=== PATIENT | male | born 1995 | race Caucasian/White ===

== ENCOUNTER 2018-08-10 17:00 | Emergency (ER) | payer OTHER, SELFPAY ==
[2018-08-10 17:07] VITALS: BP 145/81; PULSE 130; RESP 16; TEMP 37.1; O2SAT 97
--- NOTE | 2018-08-10 17:23 | W.ED.GENAD ---
Discharge Plan Disposition Patient Disposition: HOME Condition: Improving Discharge Details Chief Complaint: Laceration Clinical Impression: Laceration of left wrist Reason For Visit: left wrist LAC Primary Care Provider: Justin Matamoros ED Provider: Andrew Bolden Discharge Instructions Instructions: Laceration (ED) Additional Instructions: Return or see regular doctor for removal of sutures in 7-8 days time. Return sooner if you develop a fever, discharge from the wound, or any other acute concerns. May wash with soap and water, pat dry daily with dressing changes. Medical Decision Making 22-year-old male presents after lacerating his left wrist with the edge of his ski when he had a forward somersault fall without other injury. Hemostasis was achieved with pressure at the scene. His tetanus status is up-to-date. He has no motor or sensory dysfunction. He was initially quite anxious and his heart rate was elevated, this corrected with repair of his wound. Wound anesthetized, irrigated, examined in a bloodless field without evidence of foreign body. Repaired with 3 interrupted nylon sutures with good wound apposition. Patient stable and improved. He is appropriate for discharge to home and understands return precautions HPI General Mode of arrival: ambulatory. Date/Time Provider Initiated Documentation: 08/10/18 17:02. Limitations to Documentation: no limitations. Information obtained by: patient. History of Present Illness 22 year old M presents to the emergency department with the chief complaint of Left wrist laceration while skiing, described as moderate, Quality is described as dull and constant, and is localized to the left and upper extremity. Patient reports no radiation. Patient started experiencing this minute(s) and it has been constant. No relieving factors improve symptom(s), No exacerbating factors reported . Patient notes no other symptoms.. Patient did receive the following treatments prior to arrival, none Related Data Allergies Allergy/AdvReac Type Severity Reaction Status Date / Time No Known Allergies Allergy Unverified 08/10/18 17:11 General Stated Complaint: Laceration ZEYNEP: 3 Review of Systems Review of Systems No numbness, tingling, weakness. Tetanus up-to-date in March 2010 [facility] Social History Smoking and Tabacco status: Current every day Exam Narrative Exam Narrative: GEN: awake, alert, oriented 3. Pleasant, well groomed, interactive. HEAD: Normocephalic, atraumatic ENT: Mucous membranes moist, oropharynx unremarkable, External ear exam unremarkable EYES: PERRL, EOMI NECK: Full ROM, no GENE, no menigismus EXT: Full ROM, no edema, no rash. The left wrist dorsal surface has a 2 cm laceration that is dorsal to the radial artery. 2+ radial pulse bilaterally. Sensation intact throughout. Motor intact including ability to touch thumb to index finger cross long finger over pointer, touch thumb to fifth Neuro: Grossly normal neurologic exam, conversant, interactive. Psych: Speech fluent, thoughts congruent, affect normal Course Vital Signs Temperature 37.1 C 08/10/18 17:07 Pulse 130 H 08/10/18 17:07 Respiratory Rate 16 08/10/18 17:07 Blood Pressure 145/81 H 08/10/18 17:07 Pulse Oximetry 97 08/10/18 17:07 Temperature 37.1 C 08/10/18 17:07 Temperature Source Temporal Artery Scan 08/10/18 17:07 Pulse 130 H 08/10/18 17:07 Respiratory Rate 16 08/10/18 17:07 Blood Pressure 145/81 H 08/10/18 17:07 Pulse Oximetry 97 08/10/18 17:07 Oxygen Delivery Method Room Air 08/10/18 17:07 Oxygen Flow Rate 0 08/10/18 17:07 Procedures Laceration Laceration 1: Site: upper extremity Side (If applicable): left Size (cm): 2 Description: linear Depth: simple, single layer Local Anesthetic: Lidocaine 1% Amount of anesthesia used (mL): 1 Pre-repair: wound explored, irrigated extensively and deep structures intact Skin layer closed with: nylon Size (cm): 4-0 Number of sutures: 3 Technique: simple, interrupted
--- NOTE | 2018-08-10 17:28 | ED.GENADUL_ITS ---
Discharge Plan Disposition Patient Disposition: HOME Condition: Improving Discharge Details Chief Complaint: Laceration Clinical Impression: Laceration of left wrist Reason For Visit: left wrist LAC Primary Care Provider: Justin Matamoros ED Provider: Andrew Bolden Discharge Instructions Instructions: Laceration (ED) Additional Instructions: Return or see regular doctor for removal of sutures in 7-8 days time. Return sooner if you develop a fever, discharge from the wound, or any other acute concerns. May wash with soap and water, pat dry daily with dressing changes. Medical Decision Making 22-year-old male presents after lacerating his left wrist with the edge of his ski when he had a forward somersault fall without other injury. Hemostasis was achieved with pressure at the scene. His tetanus status is up-to-date. He has no motor or sensory dysfunction. He was initially quite anxious and his heart rate was elevated, this corrected with repair of his wound. Wound anesthetized, irrigated, examined in a bloodless field without evidence of foreign body. Repaired with 3 interrupted nylon sutures with good wound apposition. Patient stable and improved. He is appropriate for discharge to [facility] and understands return precautions HPI General Mode of arrival: ambulatory . Date/Time Provider Initiated Documentation: 08/10/18 17:02 . Limitations to Documentation: no limitations . Information obtained by: patient . History of Present Illness 22 year old M presents to the emergency department with the chief complaint of Left wrist laceration while skiing, described as moderate, Quality is described as dull and constant, and is localized to the left and upper extremity. Patient reports no radiation. Patient started experiencing this minute(s) and it has been constant. No relieving factors improve symptom(s), No exacerbating factors reported . Patient notes no other symptoms.. Patient did receive the following treatments prior to arrival, none Related Data Allergies Allergy/AdvReac Type Severity Reaction Status Date / Time No Known Allergies Allergy Unverified 08/10/18 17:11 General Stated Complaint: Laceration ZEYNEP: 3 Review of Systems Review of Systems No numbness, tingling, weakness. Tetanus up-to-date in March 2010 [facility] Social History Smoking and Tabacco status: Current every day Exam Narrative Exam Narrative: GEN: awake, alert, oriented 3. Pleasant, well groomed, interactive. HEAD: Normocephalic, atraumatic ENT: Mucous membranes moist, oropharynx unremarkable, External ear exam unremarkable EYES: PERRL, EOMI NECK: Full ROM, no GENE, no menigismus EXT: Full ROM, no edema, no rash. The left wrist dorsal surface has a 2 cm laceration that is dorsal to the radial artery. 2+ radial pulse bilaterally. Sensation intact throughout. Motor intact including ability to touch thumb to index finger cross long finger over pointer, touch thumb to fifth Neuro: Grossly normal neurologic exam, conversant, interactive. Psych: Speech fluent, thoughts congruent, affect normal Course Vital Signs Temperature 37.1 C 08/10/18 17:07 Pulse 130 H 08/10/18 17:07 Respiratory Rate 16 08/10/18 17:07 Blood Pressure 145/81 H 08/10/18 17:07 Pulse Oximetry 97 08/10/18 17:07 Temperature 37.1 C 08/10/18 17:07 Temperature Source Temporal Artery Scan 08/10/18 17:07 Pulse 130 H 08/10/18 17:07 Respiratory Rate 16 08/10/18 17:07 Blood Pressure 145/81 H 08/10/18 17:07 Pulse Oximetry 97 08/10/18 17:07 Oxygen Delivery Method Room Air 08/10/18 17:07 Oxygen Flow Rate 0 08/10/18 17:07 Procedures Laceration Laceration 1: Site: upper extremity Side (If applicable): left Size (cm): 2 Description: linear Depth: simple, single layer Local Anesthetic: Lidocaine 1% Amount of anesthesia used (mL): 1 Pre-repair: wound explored, irrigated extensively and deep structures intact Skin layer closed with: nylon Size (cm): 4-0 Number of sutures: 3 Technique: simple, interrupted
[2018-08-10 17:31] VITALS: PULSE 110; RESP 18; O2SAT 96
== END 2018-08-10 17:50 | disposition home or self-care (01) ==
PROVIDERS: Emergency Provider Emergency Medicine; PCP Pediatrics
DX: S61.512A Laceration without foreign body of left wrist, initial encounter (principal); V00.321A Fall from snow-skis, initial encounter; Y93.23 Activity, snow (alpine) (downhill) skiing, snowboarding, sledding, tobogganing and snow tubing
CPT/HCPCS: 12001

== ENCOUNTER 2018-08-19 13:09 | Emergency (ER) | payer OTHER, SELFPAY ==
--- NOTE | 2018-08-19 13:12 | ED.GENADUL_ITS ---
Discharge Plan Disposition Patient Disposition: HOME Condition: Improving Discharge Details Clinical Impression: Visit for suture removal Primary Care Provider: Justin Matamoros ED Provider: Andrew Bolden Medical Decision Making 22-year-old male here for uneventful removal of 3 sutures I placed in his left distal forearm on 10 August. They are well-appearing he is in no distress. Sutures removed and patient discharged HPI General Mode of arrival: ambulatory . Date/Time Provider Initiated Documentation: 08/19/18 13:10 . Limitations to Documentation: no limitations . Information obtained by: patient . History of Present Illness 22 year old M presents to the emergency department with the chief complaint of Suture removal, no other, Related Data Allergies Allergy/AdvReac Type Severity Reaction Status Date / Time No Known Allergies Allergy Unverified 08/10/18 17:11 General ZEYNEP: 3 PFSH Social History Smoking and Tabacco status: Current every day Exam Narrative Exam Narrative: GEN: awake, alert, oriented 3. Pleasant, well groomed, interactive. HEAD: Normocephalic, atraumatic ENT: Mucous membranes moist, oropharynx unremarkable, External ear exam unremarkable EYES: PERRL, EOMI EXT: Full ROM, no edema, no rash. [address] over healing wound left distal forearm dorsal surface. No erythema or drainage. No dehiscence. Neuro: Grossly normal neurologic exam, conversant, interactive. Psych: Speech fluent, thoughts congruent, affect normal
== END 2018-08-19 13:20 | disposition home or self-care (01) ==
LOC: ER 13:24
PROVIDERS: Emergency Provider Emergency Medicine; PCP Pediatrics
DX: S51.822D Laceration with foreign body of left forearm, subsequent encounter (principal); X58.XXXD Exposure to other specified factors, subsequent encounter; Z48.02 Encounter for removal of sutures

== ENCOUNTER 2020-02-06 21:57 | Emergency (ER) | payer OTHER, SELFPAY ==
[2020-02-06 22:02] VITALS: BP 132/70; PULSE 79; RESP 16; TEMP 36.2; O2SAT 99
--- NOTE | 2020-02-06 22:04 | W.ED.GENAD ---
Discharge Plan Disposition Patient Disposition: HOME Condition: Good Discharge Details Chief Complaint: Cellulitis Clinical Impression: Paronychia of left index finger Primary Care Provider: Justin Matamoros ED Provider: Reynaldo Borrero Home Meds and New Rx's Prescriptions: New cephalexin [Keflex] 500 mg capsule 500 mg PO QID 7 Days Qty: 28 RF: 0 Discharge Instructions Instructions: Paronychia (ED) Additional Instructions: You do have a mild infection of your finger, this is called a paronychia. Please take the antibiotic as directed, please feel free to put triple antibiotic ointment to the nailbed itself. If you notice any worsening of your symptoms, or any new symptoms such as spreading of the redness, worsening pain or swelling, vomiting, diarrhea, fever, chills, shortness of breath, chest pain, numbness, weakness, or fainting , please return immediately to the emergency department for reevaluation. Please follow up with your primary care provider as soon as possible for reassessment and reevaluation. As always, it was a pleasure participating in your medical care today. Referrals: Justin Matamoros MD [Primary Care Provider] - Medical Decision Making Pleasant 24-year-old male whose immunizations are up-to-date presents today for evaluation of irritation/infection to the nailbed of his left index finger. He is right-hand dominant. Patient states that for the last 3 to 4 days he has noticed small amount of redness and irritation and swelling the distal medial aspect of the nail. He does bite his nails. He noticed a small amount of red streaking traveling up his finger decide to come in for further evaluation. He denies any systemic fever or chills. No other complaints at this time. Physical exam demonstrates evidence of mild paronychia on his index finger, using an 18-gauge needle a small amount of pus was able to be exuded between the contracture between the skin and the nail. Patient tolerated this well. The redness extends just slightly proximally to the mid phalanx. No pain with passive or active extension of flexion, no evidence of a sausage shaped digit, or flexor or extensor tenosynovitis. Patient will be started on Keflex. Discussed red flags which to return. Patient's tetanus was updated 9 to 10 years ago, we did offer giving it again here, but the patient has declined at this time, and will follow-up with his PCP. I have extensively reviewed the treatment plan and discharge instructions with the patient. I have addressed all patient concerns at this time. The patient was made aware of what symptoms to monitor for that would warrant a return to the emergency department. Discussed the plan with the patient, they demonstrate verbal understanding and agreement with our assessment and plan at this time. HPI General Date/Time Provider Initiated Documentation: 02/06/20 21:58. HPI Narrative: Pleasant 24-year-old male whose immunizations are up-to-date presents today for evaluation of irritation/infection to the nailbed of his left index finger. He is right-hand dominant. Patient states that for the last 3 to 4 days he has noticed small amount of redness and irritation and swelling the distal medial aspect of the nail. He does bite his nails. He noticed a small amount of red streaking traveling up his finger decide to come in for further evaluation. He denies any systemic fever or chills. No other complaints at this time. Related Data Home Medications Medication Instructions Recorded Confirmed cephalexin [Keflex] 500 mg PO QID 7 Days #28 cap 02/06/20 Previous Rx's Medication Instructions Recorded cephalexin [Keflex] 500 mg PO QID 7 Days #28 cap 02/06/20 Allergies Allergy/AdvReac Type Severity Reaction Status Date / Time No Known Allergies Allergy Unverified 02/06/20 22:06 General Stated Complaint: Cellulitis ZEYNEP: 4 Review of Systems All systems reviewed & are unremarkable except as noted in HPI and below [facility] Social History Smoking/Tobacco Use Status: Current every day Alcohol Intake: current Alcohol Intake frequency: a few times a week Drug use: Never Substance use type: does not use Do you feel safe at home: Yes Do you feel safe in your relationship?: Yes Exam Narrative Exam Narrative: 1.Const: Well-nourished, Well-developed, appearing stated age 2.Eyes: PERRL, no conjunctival injection, and symmetrical lids. 3.ENT: Atraumatic external nose and ears. Moist MM. Neck: Symmetric, trachea midline, No thyromegaly. 4.CVS: +S1/S2, No murmurs or gallops. Peripheral pulses 2+ and equal in all extremities. Brisk capillary refill in all extremities. 5.RESP: Unlabored respiratory effort. Clear to auscultation bilaterally. No wheezes rales or rhonchi 6.GI: Soft, Nontender/Nondistended, No hepatosplenomegaly. No guarding or rebound. 7.MSK: Normocephalic/Atraumatic, Extremities w/o deformity or ttp No cyanosis or clubbing, Normal movement of all extremities. The patient's index finger on the left hand demonstrates small area of redness and swelling clinically consistent with a paronychia. No significant fluctuance. A 18-gauge needle was used to do bride the medial aspect of the nail/skin conjunction, and a small amount of pus was exuded. Minimal red streaking traveling up to the mid phalanx. No sausage shaped digit, no passive or active pain with extension or flexion. 8.Skin: Warm, Dry. No rashes or lesions. 9.Neuro: fibreglass gun hand II-XII grossly intact. Sensation grossly intact, no focal neurologic deficits. 10.Psych: (AAO) x3. Appropriate mood and affect Course Vital Signs Vital signs: Vital Signs Temperature 36.2 C L 02/06/20 22:02 Pulse 79 02/06/20 22:02 Respiratory Rate 16 02/06/20 22:02 Blood Pressure 132/70 02/06/20 22:02 Pulse Oximetry 99 02/06/20 22:02 Temperature 36.2 C L 02/06/20 22:02 Temperature Source Skin 02/06/20 22:02 Pulse 79 02/06/20 22:02 Respiratory Rate 16 02/06/20 22:02 Blood Pressure 132/70 02/06/20 22:02 Blood Pressure Position Sitting 02/06/20 22:02 Pulse Oximetry 99 02/06/20 22:02 Oxygen Delivery Method Room Air 02/06/20 22:02 Oxygen Flow Rate 0 02/06/20 22:02 Pain Level 6 02/06/20 22:02
[2020-02-06 22:11] VITALS: BP 132/70; PULSE 79; RESP 16; TEMP 36.2; O2SAT 99
[2020-02-06] MEDS: Cephalexin 500 MG CAP, 4 CAPS/BTL PO (22:12)
== END 2020-02-06 22:10 | disposition home or self-care (01) ==
LOC: ER 23:00
PROVIDERS: Emergency Provider Student in an Organized Health Care Education/Training Program; PCP Pediatrics
DX: L03.012 Cellulitis of left finger (principal)
CPT/HCPCS: 10160